=== PATIENT | female | born 1965 | race Caucasian/White ===

== ENCOUNTER → 2016-07-18 | Outpatient (CLI) | payer OTHER ==
--- NOTE | 2016-07-18 16:28 | REPMRS ---
Patient History The patient states she had a clinical breast exam in 11/2015. No known family history of cancer. Digital Woman Screen Mammo: July 18, 2016 - Exam #: [id number] Bilateral CC and MLO view(s) were taken. Technologist: Angely Lutz, Technologist Prior study comparison: May 12, 2014, digital woman screen mammo performed at [facility] to [facility]. February 28, 2013, digital woman screen mammo performed at [facility] to [facility]. October 12, 2010, bilateral bilat screen digital mammo performed at [facility] to [facility]. FINDINGS: The breast tissue is heterogeneously dense. This may lower the sensitivity of mammography. There is a moderate amount of heterogeneously dense fibroglandular tissue which is fairly symmetric. There is no interval development of dominant mass, architectural distortion, or clustered microcalcification typical of malignancy. There has been no change in the appearance of the mammogram from the prior studies. ASSESSMENT: BI-RADS/ACR category 1 mammogram. Negative. Recommendation Routine screening mammogram of both breasts in 1 year (for women over age 40). This mammogram was interpreted with the aid of an FDA-approved computer-aided dectection system. Electronically Signed By: Wang Arzola MD 07/18/16 [id number]
== END ==
LOC: M WHC 15:23
PROVIDERS: ATTEND Family Medicine
DX: Z12.31 Encounter for screening mammogram for malignant neoplasm of breast (principal)

== ENCOUNTER → 2018-11-05 | Outpatient (CLI) | payer BC ==
--- NOTE | 2018-11-05 14:39 | REPMRS ---
Patient History The patient states she had a clinical breast exam in 12/2017. No known family history of cancer. 3D TOMOSYNTHESIS WAS PERFORMED. [facility] for [facility] 10.1%. Digital Woman Screen Mammo: November 05, 2018 - Exam #: [id number] Bilateral CC and MLO view(s) were taken. Technologist: Marion Schafer, Technologist Prior study comparison: July 18, 2016, digital woman screen mammo performed at [facility]. May 12, 2014, digital woman screen mammo performed at [facility]. FINDINGS: The breast tissue is heterogeneously dense. This may lower the sensitivity of mammography. There has been no change in the appearance of the mammogram from the prior studies. There is a moderate amount of residual fibroglandular tissue which is fairly symmetric. There is no interval development of dominant mass, areas of architectural distortion, or clustered microcalcification typical of malignancy. Assessment: BI-RADS/ACR category 1 mammogram. Negative Mammogram. Recommendation Routine screening mammogram in 1 year (for women over age 40). This mammogram was interpreted with the aid of an FDA-approved computer-aided dectection system. Electronically Signed By: Basim Aguirre MD 11/05/18 [id number]
== END ==
LOC: M WHC 13:36
PROVIDERS: ATTEND Family Medicine
DX: Z12.31 Encounter for screening mammogram for malignant neoplasm of breast (principal)

== ENCOUNTER → 2019-01-09 | Outpatient (REF) | payer BC, OTHER | LOC: M LAB LCGH 12:08 | PROVIDERS: ATTEND Family Medicine | DX: Z12.4 Encounter for screening for malignant neoplasm of cervix (principal) ==

== ENCOUNTER → 2019-09-19 | Outpatient (CLI) | payer BC ==
--- NOTE | 2019-11-11 08:51 | SLEEPHOME ---
DATE: 09/19/2019 ORDERED BY: Dr. Green Diagnostic home sleep testing was performed due to concern for the obstructive sleep apnea syndrome. For testing, a nocturnal T3 respiratory monitoring device was used. Continuous record was made of pulse, oxygen saturation, air flow, chest and abdominal strain, and body position. There was 7 hours and 57 minutes of data reviewed. There was 7 hours and 8 minutes marked as time in bed. During the interval marked time in bed, there were 52 respiratory events identified of 10 seconds in duration or greater for a respiratory event index of 7.3. The events were obstructive. Baseline pulse rate 81 beats per minute. Pulse rate ranged 67-113. Baseline saturation 90%. Saturations fell to 80%. Testing was performed in both the supine and non-supine positions. IMPRESSION: Abnormal home sleep testing with repetitive respiratory events and oxygen desaturations to 80% with a respiratory event index of 7.3 is consistent with the obstructive sleep apnea syndrome. RECOMMENDATION: The patient should be encouraged to undergo a formal sleep evaluation. /lashell cc: DO MAGGY Pittman
== END ==
LOC: M SLEEP HO 13:00
PROVIDERS: ATTEND Internal Medicine Pulmonary Disease
DX: G47.30 Sleep apnea, unspecified (principal)

== ENCOUNTER → 2020-02-05 | Outpatient (CLI) | payer BC ==
--- NOTE | 2020-02-05 14:15 | REP ---
INDICATION: ADDL VIEWS/RIGHT BREAST. Screening mammography December 18, 2019 was BI-RADS category 0 incomplete because of some faint visualize calcifications on the right. Diagnostic imaging was recommended. COMPARISON: December 17, December 18, 2019 prior mammography TECHNIQUE: Magnified focal spot-compression CC, mL, and MLO views of the right breast were obtained. ML 3D tomography is acquired. FINDINGS: Breast parenchyma is again seen to be heterogeneously dense. Along the posterior margin of the dense breast parenchyma, magnified focal spot compression views confirm the presence of a grouping of subtle very small microcalcifications are predominantly punctate. No spiculation architectural distortion is seen. No other mammographic finding. These are located in the upper outer quadrant The Volpara volumetric breast density pattern is C. IMPRESSION: BIRADS/ACR category 4 suspicious right breast mammogram findings. Grouping of microcalcifications in the upper outer quadrant. Biopsy suggested.. This patient's [facility] lifetime breast cancer risk assessment score is 9.9%. This mammogram was interpreted with the aid of an FDA-approved computer-aided detection system. RECOMMENDATION: Stereotactic needle biopsy right breast. Clip placement and post clip placement mammography of the right breast also recommended.. The patient letter being requested is M4. <Electronically signed by Wang Arzola > 02/05/20 [id number]
== END ==
LOC: M WHC 13:32
PROVIDERS: ATTEND Family Medicine
DX: R92.8 Other abnormal and inconclusive findings on diagnostic imaging of breast (principal); N60.31 Fibrosclerosis of right breast
CPT/HCPCS: 77065; G0279

== ENCOUNTER → 2021-02-17 | Outpatient (CLI) | payer BC ==
--- NOTE | 2021-02-17 09:11 | REPMRS ---
Patient History The patient states she had a clinical breast exam in August 2020. Patient is postmenopausal. No known family history of cancer. Benign stereotactic core biopsy of the right breast, March 03, 2020. Tomosynthesis is performed. Volpara breast density is b. [facility] of [facility]%. No breast complaints today Patient signed the MRS sheet Priors on PACS Patient Identification Verified Digital Woman Screen Mammo: February 17, 2021 - Exam #: [id number] Bilateral CC and MLO view(s) were taken. Technologist: Abi Barros, Technologist Prior study comparison: February 05, 2020, right breast diagnostic unilateral mammo performed at [facility]. December 18, 2019, bilateral digital woman screen mammo performed at [facility]. FINDINGS: The breast tissue is heterogeneously dense. This may lower the sensitivity of mammography. There has been no change in the appearance of the mammogram from the prior studies. There is a moderate amount of residual fibroglandular tissue which is fairly symmetric. There is no interval development of dominant mass, areas of architectural distortion, or clustered microcalcification typical of malignancy. Assessment: BI-RADS/ACR category 1 mammogram. Negative Mammogram. Recommendation Routine screening mammogram in 1 year (for women over age 40). This mammogram was interpreted with the aid of an FDA-approved computer-aided dectection system. Electronically Signed By: Basim Aguirre MD 02/17/21 0911
--- NOTE | 2021-02-17 12:56 | REP ---
INDICATION: SCREENING MAMMOGRAM / DENSE BREAST US. COMPARISON: Mammogram today as well as multiple other prior studies. TECHNIQUE: Real-time sonographic evaluation of entire bilateral breasts performed. FINDINGS: Ultrasound of the entire right breast and entire left breast demonstrates no discrete cystic or solid mass. A biopsy clip is seen at 9 o'clock in the right breast from a prior biopsy. IMPRESSION: BIRADS/ACR category 1, negative whole breast ultrasound bilaterally. RECOMMENDATION: Annual screening. <Electronically signed by Basim Aguirre > 02/17/21 [id number]
== END ==
LOC: M WHC 07:20
DX: Z12.31 Encounter for screening mammogram for malignant neoplasm of breast (principal)

== ENCOUNTER → 2022-07-13 | Outpatient (CLI) | payer BC | LOC: M WHC 13:35 | PROVIDERS: ATTEND Nurse Practitioner Family | DX: Z12.31 Encounter for screening mammogram for malignant neoplasm of breast (principal) ==

== ENCOUNTER → 2022-07-13 | Outpatient (REF) | payer BC | LOC: M PLALAB 14:57 | PROVIDERS: ATTEND Nurse Practitioner Family | DX: Z12.4 Encounter for screening for malignant neoplasm of cervix (principal) | CPT/HCPCS: 87624; G0123 ==

== ENCOUNTER → 2023-07-27 | Outpatient (CLI) | payer BC | LOC: M WHC 14:37 | PROVIDERS: ATTEND Family Medicine | DX: Z12.31 Encounter for screening mammogram for malignant neoplasm of breast (principal) ==